=== PATIENT | female | born 1960 | race Caucasian/White ===

== ENCOUNTER 2019-02-23 17:47 | Emergency (ER) | payer OTHER ==
[~2019-02-23] VITALS: Ht 162.6 cm; Wt 68.0 kg
[2019-02-23 18:26] LABS: BASOPHIL % 0.2 % (0-2); PLATELET COUNT 302 x10^3mcL (130-400)
[2019-02-23 18:29] LABS: RED CELL DISTRIBUTION WIDTH 14.9 % (11.5-14.5)
[2019-02-23 18:34] LABS: CALCIUM 7.9 mg/dL (8.5-10.1); CARBON DIOXIDE 23.8 mmol/L (21-32); CREATININE SERUM 2.4 mg/dL (0.6-1.0); POTASSIUM SERUM 3.7 mmol/L (3.5-5.1)
[2019-02-23 18:38] LABS: BILIRUBIN TOTAL 2.23 mg/dL (0.20-1.00)
[2019-02-23 18:39] LABS: ALBUMIN 2.2 g/dL (3.4-5.0); TOTAL PROTEIN, SERUM 5.3 g/dL (6.4-8.2)
[2019-02-23 18:40] VITALS: Ht 162.6 cm; Wt 68.0 kg
[2019-02-23 23:41] VITALS: BP 120/77
== END 2019-02-23 23:40 | disposition short-term general hospital (02) ==
LOC: ED 17:47
DX: K72.90 Hepatic failure, unspecified without coma (principal); E16.2 Hypoglycemia, unspecified
CPT/HCPCS: 36415; 82962; G0480; J3490; Q0092